=== PATIENT | male | born 1990 | race Caucasian/White ===

== ENCOUNTER 2020-05-15 16:34 | Emergency (ER) | payer MEDICAID ==
[2020-05-15] MEDS ORDERED: Sodium Chloride 0.9% 10 ML Syringe FLUSH PRN ×2 (16:42→16:49)
[2020-05-15] MEDS ORDERED: Iopamidol 612 MG/ML 100 ML Bottle IVPUSH ONE (16:49)
--- NOTE | 2020-05-15 17:22 | CT ---
CT chest Technique: Multiple axial sections through the chest were obtained. Intravenous contrast was utilized. Comparison: Prior chest CT study of 01/02/12. Findings: Visualized upper abdominal structures show no discrete abnormality. No pericardial fluid is seen. Aorta shows no aneurysm. Mediastinum and hilar regions appear within normal limits. No axillary adenopathy is seen. Lungs are clear. No acute parenchymal change is appreciated. Bone window settings were reviewed. No acute osseous finding is appreciated. Impression: 1. Nothing acute is appreciated on CT study of the chest. Diagnostic code #1 This report was dictated in MDT
--- NOTE | 2020-05-15 18:27 | EDM.PDOC ---
ED HPI GENERAL MEDICAL PROBLEM - General Chief Complaint: Trauma Stated Complaint: FELL OFF ROOF 6 DAYS AGO STERNUM PAIN Time Seen by Provider: 05/15/20 16:42 Source of Information: Reports: Patient History Limitations: Reports: No Limitations - History of Present Illness INITIAL COMMENTS - FREE TEXT/NARRATIVE: The patient presents with right sided chest pain. He was on his roof about 6 days ago and fell off and landed on his right side. He did not hit his head or hurt his neck. He had no LOC. He has right sided front chest pain. He has no shortness of breath. He has no abdominal pain, arm or leg pain. He has no fever or cough. Onset: Gradual Duration: Day(s): (6) Location: Reports: Chest Quality: Reports: Sharp Severity: Moderate Improves with: Reports: Immobilization Worsens with: Reports: Movement Context: Reports: Trauma (Fell off of roof) Associated Symptoms: Reports: Chest Pain. Denies: Cough, Fever/Chills, Headaches, Nausea/Vomiting, Shortness of Breath Chest Pain Score (Numeric/FACES): 6 - Related Data Allergies Allergy/AdvReac Type Severity Reaction Status Date / Time No Known Allergies Allergy Verified 05/15/20 16:44 Home Meds: Home Meds Ibuprofen 800 mg PO TID PRN #30 tablet 07/13/15 [Rx] Hydrocodone/Acetaminophen [Hydrocodone-Acetamin 5-325 mg] 1 - 2 each PO Q6HR PRN #20 tablet 05/15/20 [Rx] Past Medical History - Past Health History Medical/Surgical History: Denies Medical/Surgical History - Infectious Disease History Infectious Disease History: Reports: None Social & Family History - Tobacco Use Smoking Status *Q: Current Every Day Smoker Years of Tobacco use: 12 Packs/Tins Daily: 1 - Caffeine Use Caffeine Use: Reports: Coffee - Recreational Drug Use Recreational Drug Use: No Review of Systems - Review of Systems Review Of Systems: See Below Constitutional: Reports: No Symptoms Eyes: Reports: No Symptoms Ears: Reports: No Symptoms Nose: Reports: No Symptoms Mouth/Throat: Reports: No Symptoms Respiratory: Reports: No Symptoms Cardiovascular: Reports: Chest Pain GI/Abdominal: Reports: No Symptoms Genitourinary: Reports: No Symptoms Musculoskeletal: Reports: No Symptoms ED EXAM, GENERAL - Physical Exam Exam: See Below Exam Limited By: No Limitations General Appearance: Alert, No Apparent Distress Ears: Normal External Exam Nose: Normal Inspection Head: Atraumatic, Normocephalic Neck: Normal Inspection Respiratory/Chest: No Respiratory Distress, Lungs Clear, Normal Breath Sounds, Other (Pain upon palpation to the right anterior chest and right lateral chest) Cardiovascular: Regular Rate, Rhythm, No Edema, No Murmur GI/Abdominal: Soft, Non-Tender, No Organomegaly, No Mass Back Exam: Normal Inspection Extremities: Normal Inspection Neurological: Alert, Oriented, No Motor/Sensory Deficits Course - Vital Signs Last Recorded V/S: Last Vital Signs Temp 97.8 F 05/15/20 16:41 Pulse 88 05/15/20 16:41 Resp 16 05/15/20 16:41 BP 146/106 H 05/15/20 16:41 Pulse Ox 99 05/15/20 16:41 - Orders/Labs/Meds Orders: Active Orders 24 hr Category Date Time Status Peripheral IV Care [RC] . DIRECTED Care 05/15/20 16:42 Active Sodium Chloride 0.9% [Saline Flush] Med 05/15/20 16:42 Active 10 ml FLUSH ASDIRECTED PRN Sodium Chloride 0.9% [Saline Flush] Med 05/15/20 16:49 Active 10 ml FLUSH ONETIME PRN Peripheral IV Insertion Adult [OM.PC] Routine Oth 05/15/20 16:42 Ordered Medication Orders Sodium Chloride (Saline Flush) 10 ml FLUSH ASDIRECTED PRN PRN Reason: Keep Vein Open Last Admin: 05/15/20 17:04 Dose: 10 ml Documented by: GARRY Sodium Chloride (Saline Flush) 10 ml FLUSH ONETIME PRN PRN Reason: Keep Vein Open Last Admin: 05/15/20 17:00 Dose: 10 ml Documented by: IVON Meds: Medications Generic Name Dose Route Start Last Admin Trade Name Freq PRN Reason Stop Dose Admin Sodium Chloride 10 ml 05/15/20 16:42 05/15/20 17:04 Saline Flush FLUSH 10 ml ASDIRECTED PRN Administration Keep Vein Open Sodium Chloride 10 ml 05/15/20 16:49 05/15/20 17:00 Saline Flush FLUSH 10 ml ONETIME PRN Administration Keep Vein Open Discontinued Medications Generic Name Dose Route Start Last Admin Trade Name Freq PRN Reason Stop Dose Admin Iopamidol 100 ml 05/15/20 16:49 05/15/20 16:58 Isovue-300 (61%) IVPUSH 05/15/20 16:50 100 ml ONETIME ONE Administration - Re-Assessments/Exams Free Text/Narrative Re-Assessment/Exam: 05/15/20 18:24 I ordered an IV saline lock and a CT of his chest. The CT shows nothing acute. I will discharge him home with something for pain and a referral to PT. Departure - Departure Time of Disposition: 18:25 Disposition: Home, Self-Care 01 Condition: Good Clinical Impression: Fall Qualifiers: Encounter type: initial encounter Qualified Code(s): W19.XXXA - Unspecified fall, initial encounter Chest wall contusion Qualifiers: Encounter type: initial encounter Laterality: right Qualified Code(s): S20.211A - Contusion of right front wall of thorax, initial encounter - Discharge Information *PRESCRIPTION DRUG MONITORING PROGRAM REVIEWED*: No *COPY OF PRESCRIPTION DRUG MONITORING REPORT IN PATIENT PEDRO: No Prescriptions: Hydrocodone/Acetaminophen [Hydrocodone-Acetamin 5-325 mg] 1 - 2 each PO Q6HR PRN #20 tablet PRN Reason: Pain Referrals: Suzanne Martinez PA-C [Primary Care Provider] - 1 Week Forms: ED Department Discharge Additional Instructions: Take tylenol or motrin for pain. If that does not help, try the hydrocodone. Follow up with physical therapy to help with the pain. Please return if you are worse. Sepsis Event Note (ED) - Evaluation Sepsis Screening Result: No Definite Risk - Focused Exam Vital Signs: Vital Signs Temp Pulse Resp BP Pulse Ox 05/15/20 16:41 97.8 F 88 16 146/106 H 99 - My Orders Last 24 Hours: My Active Orders 05/15/20 16:42 Peripheral IV Care [RC] . DIRECTED Sodium Chloride 0.9% [Saline Flush] 10 ml FLUSH ASDIRECTED PRN Peripheral IV Insertion Adult [OM.PC] Routine 05/15/20 16:49 Sodium Chloride 0.9% [Saline Flush] 10 ml FLUSH ONETIME PRN - Assessment/Plan Last 24 Hours: My Active Orders 05/15/20 16:42 Peripheral IV Care [RC] . DIRECTED Sodium Chloride 0.9% [Saline Flush] 10 ml FLUSH ASDIRECTED PRN Peripheral IV Insertion Adult [OM.PC] Routine 05/15/20 16:49 Sodium Chloride 0.9% [Saline Flush] 10 ml FLUSH ONETIME PRN
[2020-05-15 18:46] VITALS: BP 118/72; PULSE 64
== END 2020-05-15 18:46 | disposition home or self-care (01) ==
LOC: JD.ED 16:34
DX: S20.211A Contusion of right front wall of thorax, initial encounter (principal); F17.210 Nicotine dependence, cigarettes, uncomplicated; W17.89XA Other fall from one level to another, initial encounter
CPT/HCPCS: 71260; 99285; Q9967; 99283

== ENCOUNTER 2020-06-30 12:11 | Emergency (ER) | payer MEDICAID ==
[2020-06-30] MEDS ORDERED: Sodium Chloride 0.9% 10 ML Syringe FLUSH PRN (12:22)
--- NOTE | 2020-06-30 12:41 | EDM.PDOCBH ---
ED HPI GENERAL MEDICAL PROBLEM - General Chief Complaint: Drug or Alcohol Abuse Stated Complaint: [facility] Time Seen by Provider: 06/30/20 12:18 Source of Information: Reports: Patient, EMS, Police History Limitations: Reports: No Limitations - History of Present Illness INITIAL COMMENTS - FREE TEXT/NARRATIVE: The patient presents by [facility] for an overdose. The patient was smoking a trisha he bought on the street and he stopped breathing. There was someone near him when he did this and they called 911 and started CPR. The nut roaster's deputies arrived shortly after and gave him 2 doses of narcan 4mg per nasal. When EMS arrived they started an IV and gave more narcan. They did 2 rounds of CPR. He came around and is alert and talking now. The patient said he smoked the roxys before and never had a problem. He only used half a pill. He had some nausea and vomiting and he was given zofran enroute. He has some chest pain now. He has no medical problems. Onset: Sudden Duration: Minutes: Location: Reports: Chest Quality: Reports: Sharp Severity: Moderate Improves with: Reports: Immobilization Worsens with: Reports: Movement Context: Reports: Trauma (CPR) Associated Symptoms: Reports: Chest Pain, Nausea/Vomiting. 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, Oxygen Middle Chest Pain Score (Numeric/FACES): 1 - Related Data Allergies Allergy/AdvReac Type Severity Reaction Status Date / Time No Known Allergies Allergy Verified 06/30/20 12:24 Home Meds: Home Meds Ibuprofen 800 mg PO TID PRN #30 tablet 07/13/15 [Rx] Ondansetron [Zofran ODT] 4 mg PO Q6H PRN #20 tab.dis 06/30/20 [Rx] Past Medical History - Past Health History Medical/Surgical History: Denies Medical/Surgical History - Infectious Disease History Infectious Disease History: Reports: None Social & Family History - Caffeine Use Caffeine Use: Reports: Coffee ED ROS GENERAL - Review of Systems Review Of Systems: See Below Constitutional: Reports: No Symptoms HEENT: Reports: No Symptoms Respiratory: Reports: No Symptoms Cardiovascular: Reports: Chest Pain Endocrine: Reports: No Symptoms GI/Abdominal: Reports: Nausea, Vomiting. Denies: Abdominal Pain : Reports: No Symptoms Musculoskeletal: Reports: No Symptoms Skin: Reports: No Symptoms ED EXAM, BEHAVIORAL HEALTH - Physical Exam Exam: See Below Exam Limited By: No Limitations General Appearance: Alert, No Apparent Distress Ears: Normal External Exam Nose: Normal Inspection Head: Atraumatic, Normocephalic Neck: Normal Inspection Respiratory/Chest: No Respiratory Distress, Lungs Clear, Normal Breath Sounds Cardiovascular: Regular Rate, Rhythm, No Edema, No Murmur GI/Abdominal: Soft, Non-Tender, No Organomegaly, No Mass Extremities: Normal Inspection COURSE, BEHAVIORAL HEALTH COMP - Course Vital Signs: Last Vital Signs Temp 97.2 F 06/30/20 12:35 Pulse 103 H 06/30/20 12:35 Resp 24 H 06/30/20 12:35 BP 117/88 06/30/20 12:35 Pulse Ox 87 L 06/30/20 12:35 Orders, Labs, Meds: Active Orders 24 hr Category Date Time Status Cardiac Monitoring [RC] . DIRECTED Care 06/30/20 12:22 Active Peripheral IV Care [RC] . DIRECTED Care 06/30/20 12:23 Active Sodium Chloride 0.9% [Saline Flush] Med 06/30/20 12:22 Active 10 ml FLUSH ASDIRECTED PRN Peripheral IV Insertion Adult [OM.PC] Stat Oth 06/30/20 12:22 Ordered Medication Orders Sodium Chloride (Saline Flush) 10 ml FLUSH ASDIRECTED PRN PRN Reason: Keep Vein Open Last Admin: 06/30/20 12:32 Dose: 10 ml Documented by: YVAN Laboratory Tests 06/30/20 06/30/20 06/30/20 Range/Units 12:42 13:08 13:08 WBC 12.32 H (4.23-9.07) K/mm3 RBC 4.75 (4.63-6.08) M/mm3 Hgb 14.1 (13.7-17.5) gm/dl Hct 43.6 (40.1-51.0) % MCV 91.8 (79.0-92.2) fl MCH 29.7 (25.7-32.2) pg MCHC 32.3 (32.2-35.5) g/dl RDW Std Deviation 47.1 H (35.1-43.9) fL Plt Count 399 H (163-337) K/mm3 MPV 9.6 (9.4-12.3) fl Neut % (Auto) 84.5 H (34.0-67.9) % Lymph % (Auto) 9.7 L (21.8-53.1) % [place] % (Auto) 4.1 L (5.3-12.2) % Eos % (Auto) 1.3 (0.8-7.0) Baso % (Auto) 0.2 (0.1-1.2) % Neut # (Auto) 10.41 H (1.78-5.38) K/mm3 Lymph # (Auto) 1.20 L (1.32-3.57) K/mm3 [place] # (Auto) 0.50 (0.30-0.82) K/mm3 Eos # (Auto) 0.16 (0.04-0.54) K/mm3 Baso # (Auto) 0.02 (0.01-0.08) K/mm3 Manual Slide Review Abnormal smear Sodium 140 (136-145) mEq/L Potassium 3.7 (3.5-5.1) mEq/L Chloride 102 (98-107) mEq/L Carbon Dioxide 27 (21-32) mEq/L Anion Gap 14.7 (5-15) BUN 18 (7-18) mg/dL Creatinine 1.5 H (0.7-1.3) mg/dL Est Cr Clr Drug Dosing 77.60 mL/min Estimated GFR (MDRD) 54 (>60) mL/min BUN/Creatinine Ratio 12.0 L (14-18) Glucose 76 (74-106) mg/dL Calcium 9.6 (8.5-10.1) mg/dL Total Bilirubin 0.3 (0.2-1.0) mg/dL AST 36 (15-37) U/L ALT 46 (16-63) U/L Alkaline Phosphatase 78 (46-116) U/L Total Protein 7.6 (6.4-8.2) g/dl Albumin 3.9 (3.4-5.0) g/dl Globulin 3.7 gm/dL Albumin/Globulin Ratio 1.1 (1-2) Urine Opiates Screen Presumptive positive H (IOHQKH=321) Ur Buprenorphine Scrn Negative (CUTOFF=10) Ur Oxycodone Screen Negative (ARH6OR=319) Urine Methadone Screen Negative (IDE9IB=466) Ur Propoxyphene Screen Negative (PYKSIX=117) Ur Barbiturates Screen Negative (TQTMEW=150) Ur Tricyclics Screen Negative (UKUJAQ=909) Ur Phencyclidine Scrn Negative (CUTOFF=25) Ur Amphetamine Screen Presumptive positive H (LEYXRK=156) U Methamphetamines Scrn Presumptive positive H (JEELPZ=851) U Benzodiazepines Scrn Negative (ZNNXOV=878) U Cocaine Metab Screen Negative (NRGJRF=445) U Marijuana (THC) Screen Presumptive positive H (CUTOFF=50) Ethyl Alcohol 0.00 (0.00) gm% Medications Generic Name Dose Route Start Last Admin Trade Name Freq PRN Reason Stop Dose Admin Sodium Chloride 10 ml 06/30/20 12:22 06/30/20 12:32 Saline Flush FLUSH 10 ml ASDIRECTED PRN Administration Keep Vein Open Discontinued Medications Generic Name Dose Route Start Last Admin Trade Name Freq PRN Reason Stop Dose Admin Metoclopramide HCl 10 mg 06/30/20 15:01 06/30/20 15:05 Reglan IVPUSH 06/30/20 15:02 10 mg ONETIME ONE Administration Re-Assessment/Re-Exam: I ordered an IV saline lock, labs and ETOH. His WBC was elevated at 12.32. His creatinine was elevated at 1.5. His UDS was positive for opiates, amphetamines, methamphetamines and marijuana. His ETOH was 0. I will observe him a little longer and discharge him home. He has vomited again. I ordered reglan 10mg IV. He has been here 4 hours and has not stopped his breathing. I will discharge him home with some zofran. Departure - Departure Time of Disposition: 16:10 Disposition: Home, Self-Care 01 Condition: Good Clinical Impression: Drug abuse Opioid overdose Qualifiers: Encounter type: initial encounter Injury intent: accidental or unintentional Qualified Code(s): T40.2X1A - Poisoning by other opioids, accidental (unintentional), initial encounter - Discharge Information *PRESCRIPTION DRUG MONITORING PROGRAM REVIEWED*: Not Applicable *COPY OF PRESCRIPTION DRUG MONITORING REPORT IN PATIENT PEDRO: Not Applicable Prescriptions: Ondansetron [Zofran ODT] 4 mg PO Q6H PRN #20 tab.dis PRN Reason: Nausea\vomiting Referrals: Suzanne Martinez PA-C [Primary Care Provider] - 1 Week Forms: ED Department Discharge Additional Instructions: Go home and rest. Drink plenty of fluids. Stop taking opiates you cannot trust what is in them and you may stop breathing and . If you need help stopping, contact [facility] at . Please return if you are worse. Take the zofran every 6 hours as needed for nausea or vomiting. Sepsis Event Note (ED) - Focused Exam Vital Signs: Vital Signs Temp Pulse Resp BP Pulse Ox 06/30/20 12:35 97.2 F 103 H 24 H 117/88 87 L - My Orders Last 24 Hours: My Active Orders 06/30/20 12:22 Cardiac Monitoring [RC] . DIRECTED Sodium Chloride 0.9% [Saline Flush] 10 ml FLUSH ASDIRECTED PRN Peripheral IV Insertion Adult [OM.PC] Stat 06/30/20 12:23 Peripheral IV Care [RC] . DIRECTED - Assessment/Plan Last 24 Hours: My Active Orders 06/30/20 12:22 Cardiac Monitoring [RC] . DIRECTED Sodium Chloride 0.9% [Saline Flush] 10 ml FLUSH ASDIRECTED PRN Peripheral IV Insertion Adult [OM.PC] Stat 06/30/20 12:23 Peripheral IV Care [RC] . DIRECTED
[2020-06-30] MEDS ORDERED: Metoclopramide 10 MG/2 ML SDV IVPUSH ONE (15:01)
[2020-06-30 16:30] VITALS: BP 117/84; PULSE 95
== END 2020-06-30 16:25 | disposition home or self-care (01) ==
LOC: JD.ED 12:11
DX: T40.2X1A Poisoning by other opioids, accidental (unintentional), initial encounter (principal); F15.10 Other stimulant abuse, uncomplicated; F12.10 Cannabis abuse, uncomplicated
CPT/HCPCS: 36415; 80053; 80306; 80307; 85025; 96374; 99284; J2765

== ENCOUNTER 2020-12-21 19:51 | Emergency (ER) | payer MEDICAID ==
[2020-12-21] MEDS ORDERED: HYDROmorphone 0.5 MG/0.5 ML Syringe IVPUSH ONE (20:20)
[2020-12-21] MEDS ORDERED: Sodium Chloride 0.9% 1,000 ML IV STA (20:20)
[2020-12-21] MEDS ORDERED: Ondansetron 4 MG/2 ML SDV IVPUSH ONE ×2 (20:20→21:17)
--- NOTE | 2020-12-21 21:47 | EDM.PDOC ---
ED HPI GENERAL MEDICAL PROBLEM - General Chief Complaint: Abdominal Pain Stated Complaint: LOWER ABDOMINAL PAIN Time Seen by Provider: 12/21/20 20:10 Source of Information: Reports: Patient, Family, RN Notes Reviewed History Limitations: Reports: No Limitations - History of Present Illness INITIAL COMMENTS - FREE TEXT/NARRATIVE: Patient is a 30-year-old male presenting to the emergency department with complaints of lower abdominal pain and lower back pain as well as nausea. He states symptoms began around 1500 today with an episode of vomiting. Immediately after vomiting, he developed the lower abdominal pain and low back pain. He has had 2 episodes of diarrhea and states there was blood present in the second episode. He has also had rigors and diaphoresis. Denies any history of abdominal surgeries. Denies any recreational drug use other than marijuana. Lower Abdomen Pain Score (Numeric/FACES): 10 - Related Data Allergies Allergy/AdvReac Type Severity Reaction Status Date / Time No Known Allergies Allergy Verified 12/21/20 20:09 Home Meds: Home Meds Ibuprofen 800 mg PO TID PRN #30 tablet 07/13/15 [Rx] Ondansetron [Zofran ODT] 4 mg PO Q6H PRN #20 tab.dis 06/30/20 [Rx] Acetaminophen/HYDROcodone [[place] 325-5 MG] 1 tab PO Q4H PRN #10 tablet 12/21/20 [Rx] Ondansetron [Zofran ODT] 4 mg PO Q6H PRN #10 tab.dis 12/21/20 [Rx] levoFLOXacin [Levaquin] 750 mg PO DAILY 7 Days #7 tab 12/21/20 [Rx] metroNIDAZOLE [Flagyl] 500 mg PO Q8H 7 Days #21 tab 12/21/20 [Rx] Past Medical History - Past Health History Medical/Surgical History: Denies Medical/Surgical History HEENT History: Reports: None Cardiovascular History: Reports: None Respiratory History: Reports: None Gastrointestinal History: Reports: None Genitourinary History: Reports: None Musculoskeletal History: Reports: None Neurological History: Reports: None Psychiatric History: Reports: None Endocrine/Metabolic History: Reports: None Hematologic History: Reports: None Immunologic History: Reports: None Oncologic (Cancer) History: Reports: None Dermatologic History: Reports: None - Infectious Disease History Infectious Disease History: Reports: None - Past Surgical History Head Surgeries/Procedures: Reports: None HEENT Surgical History: Reports: Oral Surgery GI Surgical History: Reports: None Social & Family History - Family History Family Medical History: No Pertinent Family History HEENT: Reports: None GI: Reports: None : Reports: None OBGYN: Reports: None Musculoskeletal: Reports: None Hematologic: Reports: None Oncologic: Reports: Breast - Tobacco Use Tobacco Use Status *Q: Current Every Day Tobacco User Years of Tobacco use: 20 Packs/Tins Daily: 0.5 - Caffeine Use Caffeine Use: Reports: Coffee - Recreational Drug Use Recreational Drug Use: Yes Drug Use in Last 12 Months: Yes Recreational Drug Type: Reports: Marijuana/Hashish Recreational Drug Use Frequency: Socially ED ROS GENERAL - Review of Systems Review Of Systems: See Below Constitutional: Reports: Diaphoresis HEENT: Reports: No Symptoms Respiratory: Reports: No Symptoms Cardiovascular: Reports: No Symptoms Endocrine: Reports: No Symptoms GI/Abdominal: Reports: Abdominal Pain (Mid lower), Bloody Stool, Diarrhea, Nausea, Vomiting : Reports: No Symptoms Musculoskeletal: Reports: No Symptoms Skin: Reports: No Symptoms Neurological: Reports: No Symptoms Psychiatric: Reports: No Symptoms Hematologic/Lymphatic: Reports: No Symptoms Immunologic: Reports: No Symptoms ED EXAM, GI/ABD - Physical Exam Exam: See Below Exam Limited By: No Limitations General Appearance: Alert, Mild Distress Respiratory/Chest: No Respiratory Distress, Lungs Clear, Normal Breath Sounds, No Accessory Muscle Use, Chest Non-Tender Cardiovascular: Normal Peripheral Pulses, Regular Rate, Rhythm, No Edema, No Gallop, No JVD, No Murmur, No Rub GI/Abdominal Exam: Normal Bowel Sounds, Soft, No Organomegaly, No Distention, No Abnormal Bruit, No Mass, Pelvis Stable, Tender (Tenderness to palpation to the mid lower abdomen and lesser so to the left lower quadrant.) Neurological: Alert, Oriented, CN II-XII Intact, Normal Cognition, Normal Gait, Normal Reflexes, No Motor/Sensory Deficits Psychiatric: Normal Affect, Normal Mood Skin Exam: Warm, Dry, Intact, Normal Color, No Rash Course - Vital Signs Last Recorded V/S: Last Vital Signs Temp 96.9 F 12/21/20 20:06 Pulse 65 12/21/20 20:06 Resp 16 12/21/20 20:06 BP 137/84 12/21/20 20:06 Pulse Ox 100 12/21/20 20:06 - Orders/Labs/Meds Orders: Active Orders 24 hr Category Date Time Status Abdomen Pelvis w Cont [CT] Stat Exams 12/21/20 20:20 Taken Levofloxacin/Dextrose 5%-Water [Levaquin in D5W 750 MG/ Med 12/21/20 23:18 Active 150 ML] 750 mg Premix Bag 1 bag IV ONETIME Sodium Chloride 0.9% [Saline Flush] Med 12/21/20 22:45 Active 10 ml FLUSH BOLUS metroNIDAZOLE/Normal Saline [Flagyl in NS 500 MG/100 ML Med 12/21/20 23:18 Active ] 500 mg Premix Bag 1 bag IV ONETIME Medication Orders Levofloxacin/Dextrose 750 mg/ (Premix) 150 mls @ 100 mls/hr IV ONETIME ONE Stop: 12/22/20 00:47 Metronidazole 500 mg/ Premix 100 mls @ 100 mls/hr IV ONETIME ONE Stop: 12/22/20 00:17 Sodium Chloride (Sodium Chloride 0.9% 10 Ml Syringe) 10 ml FLUSH BOLUS LESLY Last Admin: 12/21/20 22:42 Dose: 10 ml Documented by: [email or web address] Labs: Laboratory Tests 12/21/20 12/21/20 12/21/20 Range/Units 20:15 20:15 21:03 WBC 12.55 H (4.23-9.07) K/mm3 RBC 4.67 (4.63-6.08) M/mm3 Hgb 13.8 (13.7-17.5) gm/dl Hct 42.3 (40.1-51.0) % MCV 90.6 (79.0-92.2) fl MCH 29.6 (25.7-32.2) pg MCHC 32.6 (32.2-35.5) g/dl RDW Std Deviation 46.8 H (35.1-43.9) fL Plt Count 390 H (163-337) K/mm3 MPV 9.4 (9.4-12.3) fl Neut % (Auto) 75.0 H (34.0-67.9) % Lymph % (Auto) 18.0 L (21.8-53.1) % [place] % (Auto) 5.3 (5.3-12.2) % Eos % (Auto) 1.3 (0.8-7.0) Baso % (Auto) 0.2 (0.1-1.2) % Neut # (Auto) 9.42 H (1.78-5.38) K/mm3 Lymph # (Auto) 2.26 (1.32-3.57) K/mm3 [place] # (Auto) 0.67 (0.30-0.82) K/mm3 Eos # (Auto) 0.16 (0.04-0.54) K/mm3 Baso # (Auto) 0.02 (0.01-0.08) K/mm3 Sodium 140 (136-145) mEq/L Potassium 4.0 (3.5-5.1) mEq/L Chloride 103 (98-107) mEq/L Carbon Dioxide 26 (21-32) mEq/L Anion Gap 15.0 (5-15) BUN 19 H (7-18) mg/dL Creatinine 1.3 (0.7-1.3) mg/dL Est Cr Clr Drug Dosing 89.54 mL/min Estimated GFR (MDRD) > 60 (>60) mL/min BUN/Creatinine Ratio 14.6 (14-18) Glucose 116 H (74-106) mg/dL Calcium 9.4 (8.5-10.1) mg/dL Magnesium 1.7 L (1.8-2.4) mg/dl Total Bilirubin 0.4 (0.2-1.0) mg/dL AST 17 (15-37) U/L ALT 30 (16-63) U/L Alkaline Phosphatase 80 (46-116) U/L C-Reactive Protein 0.9 (<1.0) mg/dL Total Protein 7.6 (6.4-8.2) g/dl Albumin 3.8 (3.4-5.0) g/dl Globulin 3.8 gm/dL Albumin/Globulin Ratio 1.0 (1-2) Urine Color Yellow (Yellow) Urine Appearance Clear (Clear) Urine pH 8.5 H (5.0-8.0) Ur Specific [place] 1.020 (1.005-1.030) Urine Protein Negative (Negative) Urine Glucose (UA) Negative (Negative) Urine Ketones 1+ H (Negative) Urine Occult Blood Negative (Negative) Urine Nitrite Negative (Negative) Urine Bilirubin Negative (Negative) Urine Urobilinogen 0.2 (0.2-1.0) Ur Leukocyte Esterase Negative (Negative) Urine Opiates Screen (SDRPSM=169) Ur Buprenorphine Scrn (CUTOFF=10) Ur Oxycodone Screen (FJI9AK=369) Urine Methadone Screen (EHQ6JX=344) Ur Propoxyphene Screen (QQALLW=179) Ur Barbiturates Screen (ZUIMTK=219) Ur Tricyclics Screen (DQMUZY=463) Ur Phencyclidine Scrn (CUTOFF=25) Ur Amphetamine Screen (EHQYMM=465) U Methamphetamines Scrn (YKKJGB=429) U Benzodiazepines Scrn (WPZVYL=970) U Cocaine Metab Screen (JJNOYR=115) U Marijuana (THC) Screen (CUTOFF=50) 12/21/20 Range/Units 21:03 WBC (4.23-9.07) K/mm3 RBC (4.63-6.08) M/mm3 Hgb (13.7-17.5) gm/dl Hct (40.1-51.0) % MCV (79.0-92.2) fl MCH (25.7-32.2) pg MCHC (32.2-35.5) g/dl RDW Std Deviation (35.1-43.9) fL Plt Count (163-337) K/mm3 MPV (9.4-12.3) fl Neut % (Auto) (34.0-67.9) % Lymph % (Auto) (21.8-53.1) % [place] % (Auto) (5.3-12.2) % Eos % (Auto) (0.8-7.0) Baso % (Auto) (0.1-1.2) % Neut # (Auto) (1.78-5.38) K/mm3 Lymph # (Auto) (1.32-3.57) K/mm3 [place] # (Auto) (0.30-0.82) K/mm3 Eos # (Auto) (0.04-0.54) K/mm3 Baso # (Auto) (0.01-0.08) K/mm3 Sodium (136-145) mEq/L Potassium (3.5-5.1) mEq/L Chloride (98-107) mEq/L Carbon Dioxide (21-32) mEq/L Anion Gap (5-15) BUN (7-18) mg/dL Creatinine (0.7-1.3) mg/dL Est Cr Clr Drug Dosing mL/min Estimated GFR (MDRD) (>60) mL/min BUN/Creatinine Ratio (14-18) Glucose (74-106) mg/dL Calcium (8.5-10.1) mg/dL Magnesium (1.8-2.4) mg/dl Total Bilirubin (0.2-1.0) mg/dL AST (15-37) U/L ALT (16-63) U/L Alkaline Phosphatase (46-116) U/L C-Reactive Protein (<1.0) mg/dL Total Protein (6.4-8.2) g/dl Albumin (3.4-5.0) g/dl Globulin gm/dL Albumin/Globulin Ratio (1-2) Urine Color (Yellow) Urine Appearance (Clear) Urine pH (5.0-8.0) Ur Specific [place] (1.005-1.030) Urine Protein (Negative) Urine Glucose (UA) (Negative) Urine Ketones (Negative) Urine Occult Blood (Negative) Urine Nitrite (Negative) Urine Bilirubin (Negative) Urine Urobilinogen (0.2-1.0) Ur Leukocyte Esterase (Negative) Urine Opiates Screen Presumptive positive H (JRBTEX=171) Ur Buprenorphine Scrn Negative (CUTOFF=10) Ur Oxycodone Screen Negative (RDT3XR=736) Urine Methadone Screen Negative (YGJ8YG=561) Ur Propoxyphene Screen Negative (SZDGGO=635) Ur Barbiturates Screen Negative (UUWBTB=748) Ur Tricyclics Screen Negative (TSZFED=822) Ur Phencyclidine Scrn Negative (CUTOFF=25) Ur Amphetamine Screen Negative (BSXHNL=614) U Methamphetamines Scrn Negative (RYKNFE=971) U Benzodiazepines Scrn Negative (VSMYAG=220) U Cocaine Metab Screen Negative (OIUQSU=149) U Marijuana (THC) Screen Presumptive positive H (CUTOFF=50) Meds: Medications Generic Name Dose Route Start Last Admin Trade Name Freq PRN Reason Stop Dose Admin Levofloxacin/Dextrose 750 mg/ 150 mls @ 100 mls/hr 12/21/20 23:18 Premix IV 12/22/20 00:47 ONETIME ONE Metronidazole 500 mg/ Premix 100 mls @ 100 mls/hr 12/21/20 23:18 IV 12/22/20 00:17 ONETIME ONE Sodium Chloride 10 ml 12/21/20 22:45 12/21/20 22:42 Sodium Chloride 0.9% 10 Ml Syringe FLUSH 10 ml BOLUS LESLY Administration Discontinued Medications Generic Name Dose Route Start Last Admin Trade Name Mackenzie PRN Reason Stop Dose Admin Hydromorphone HCl 0.5 mg 12/21/20 20:20 12/21/20 20:28 Hydromorphone 0.5 Mg/0.5 Ml Syringe IVPUSH 12/21/20 20:21 0.5 mg ONETIME ONE Administration Sodium Chloride 1,000 mls @ 999 mls/hr 12/21/20 20:20 12/21/20 20:27 Normal Saline IV 12/21/20 21:20 999 mls/hr NOW STA Administration Iopamidol 100 ml 12/21/20 22:42 12/21/20 22:42 Iopamidol 612 Mg/Ml 100 Ml Bottle IVPUSH 12/21/20 22:43 100 ml ONETIME ONE Administration Ketorolac Tromethamine 30 mg 12/21/20 23:18 Ketorolac 30 Mg/Ml Sdv IVPUSH 12/21/20 23:19 ONETIME ONE Metoclopramide HCl 7.5 mg 12/21/20 23:19 Metoclopramide 10 Mg/2 Ml Sdv IVPUSH 12/21/20 23:20 ONETIME ONE Ondansetron HCl 4 mg 12/21/20 20:20 12/21/20 20:28 Ondansetron 4 Mg/2 Ml Sdv IVPUSH 12/21/20 20:21 4 mg ONETIME ONE Administration Ondansetron HCl 4 mg 12/21/20 21:17 12/21/20 21:34 Ondansetron 4 Mg/2 Ml Sdv IVPUSH 12/21/20 21:18 4 mg ONETIME ONE Administration - Re-Assessments/Exams Free Text/Narrative Re-Assessment/Exam: Patient is a 30-year-old male presenting to the emergency department with complaints of acute onset of nausea, vomiting, diarrhea, and lower abdominal pain. Symptoms began around 1500 this afternoon. He has also been having diaphoresis and rigors. Vital signs in triage were stable. On exam, he does have tenderness to the mid lower abdomen and to a lesser degree the left lower quadrant. Complains of pain in his low back near his tailbone as well. He reports having 2 episodes of diarrhea with some blood in the second episode. I have ordered blood work, urinalysis, urine drug screen, CT scan of the abdomen pelvis with contrast and a Hemoccult stool. If he is unable to produce a stool sample, I will complete a rectal exam. I will give a 1 L bolus of normal saline, Zofran for nausea, and Dilaudid for pain. 12/21/20 22:43 Due to significant her WBC 12.55, platelet 390, BUN 19 magnesium 1.7. Urinalysis with 1+ ketones but no signs of infection or blood. Urine drug screen was presumptive positive for opiates and marijuana. We did give the patient Dilaudid prior to this to being collected, therefore this is likely the cause of the positive opiate. Patient has had no further vomiting or diarrhea since he has been in the ER. We are awaiting the results of the CT scan. 12/21/20 23:19 CT scan of the abdomen pelvis shows "mild colonic wall thickening with mild surrounding pericolonic inflammatory change. The abnormality involves primarily the colon from just proximal to the splenic flexure to the sigmoid. There are scattered diverticula present, the segment of the left colon abnormalities too long to be explained on the basis of diverticulitis. Nonspecific/nonobstructive intestinal gas pattern. ". Results discussed with the general surgeon on-call, Dr. Brandon. He feels that this is a diverticulitis and recommended that we treat this as such. He should follow-up with his primary care later this week or return to ER with worsening symptoms. I have ordered first dose of Levaquin and Flagyl to be given IV. His pain is improved and tolerable, nonetheless I ordered Toradol 30 mg IV to be given to help reduce inflammation. He has had no further vomiting but does still feel mildly nauseous. I ordered Reglan 7.5 mg IV. Plan will be to send prescription for Levaquin, Flagyl, and Zofran for nausea. Discussed that if his symptoms should appear to be worsening or he is unable to keep down his medications, he should return to the emergency department for reevaluation. He verbalizes understanding of this. Discharge instructions as documented. Departure - Departure Time of Disposition: 23:21 Disposition: Home, Self-Care 01 Condition: Good Clinical Impression: Diverticulitis - Discharge Information *PRESCRIPTION DRUG MONITORING PROGRAM REVIEWED*: No *COPY OF PRESCRIPTION DRUG MONITORING REPORT IN PATIENT PEDRO: No Prescriptions: metroNIDAZOLE [Flagyl] 500 mg PO Q8H 7 Days #21 tab levoFLOXacin [Levaquin] 750 mg PO DAILY 7 Days #7 tab Acetaminophen/HYDROcodone [[place] 325-5 MG] 1 tab PO Q4H PRN #10 tablet PRN Reason: Pain Ondansetron [Zofran ODT] 4 mg PO Q6H PRN #10 tab.dis PRN Reason: Nausea/Vomiting Instructions: Diverticulitis Referrals: Suzanne Martinez PA-C [Primary Care Provider] - Forms: ED Department Discharge Additional Instructions: You were seen in the emergency department today for evaluation with regards to lower abdominal pain, nausea, vomiting, diarrhea and the presence of some blood in your diarrhea. Work-up included blood work, urinalysis, and a CT scan your abdomen pelvis. Results of your CT scan did show some inflammation in the colon consistent with a diagnosis of diverticulitis. While in the ER, you received a first dose of antibiotics through your IV. A prescription for antibiotics, nausea medication, and pain medication has been sent to [facility]. Take these medications as prescribed. Recommend follow-up with your primary care provider later this week for a recheck. If you should experience symptoms of worsening abdominal pain, vomiting and inability keep your medications down, or any other symptoms of concern, please return to the emergency department for reevaluation. Sepsis Event Note (ED) - Evaluation Sepsis Screening Result: No Definite Risk - Focused Exam Vital Signs: Vital Signs Temp Pulse Resp BP Pulse Ox 12/21/20 20:06 96.9 F 65 16 137/84 100 - My Orders Last 24 Hours: My Active Orders 12/21/20 20:20 Abdomen Pelvis w Cont [CT] Stat 12/21/20 22:45 Sodium Chloride 0.9% [Saline Flush] 10 ml FLUSH BOLUS 12/21/20 23:18 Levofloxacin/Dextrose 5%-Water [Levaquin in D5W 750 MG/150 ML] 750 mg Premix Bag 1 bag IV ONETIME metroNIDAZOLE/Normal Saline [Flagyl in NS 500 MG/100 ML] 500 mg Premix Bag 1 bag IV ONETIME - Assessment/Plan Last 24 Hours: My Active Orders 12/21/20 20:20 Abdomen Pelvis w Cont [CT] Stat 12/21/20 22:45 Sodium Chloride 0.9% [Saline Flush] 10 ml FLUSH BOLUS 12/21/20 23:18 Levofloxacin/Dextrose 5%-Water [Levaquin in D5W 750 MG/150 ML] 750 mg Premix Bag 1 bag IV ONETIME metroNIDAZOLE/Normal Saline [Flagyl in NS 500 MG/100 ML] 500 mg Premix Bag 1 bag IV ONETIME
[2020-12-21] MEDS ORDERED: Iopamidol 612 MG/ML 100 ML Bottle IVPUSH ONE (22:42)
[2020-12-21] MEDS ORDERED: Sodium Chloride 0.9% 10 ML Syringe FLUSH SCH (22:45)
[2020-12-21] MEDS ORDERED: Ketorolac 30 MG/ML SDV IVPUSH ONE (23:18)
[2020-12-21] MEDS ORDERED: metroNIDAZOLE/Normal Saline 500 MG in Premix Bag 1 BAG IV ONE (23:18)
[2020-12-21] MEDS ORDERED: Levofloxacin/Dextrose 5%-Water 750 MG in Premix Bag 1 BAG IV ONE (23:18)
[2020-12-21] MEDS ORDERED: Metoclopramide 10 MG/2 ML SDV IVPUSH ONE (23:19)
[2020-12-22 01:15] VITALS: BP 121/76; PULSE 89
--- NOTE | 2020-12-22 07:39 | CT ---
CT abdomen and pelvis Technique: Multiple axial sections were obtained from above the dome of the diaphragm inferiorly through the pubic symphysis. Intravenous and oral contrast was utilized. Delayed images were also obtained through the abdomen and pelvis. Reconstructed coronal and sagittal images were obtained. Comparison: Prior CT abdomen and pelvis exam of 01/02/12. Findings: Bowel wall thickening appears to be present within the descending colon. Difficult to exclude an area of colitis. Visualized lung bases show nothing acute. Liver shows small low density area next to the intrahepatic fissure compatible with minimal amount of fat. Liver shows nothing acute. Spleen appears normal. Adrenal glands show no nodule. No abnormality is appreciated within the pancreas. Kidneys show symmetric contrast enhancement without hydronephrosis or mass. Aorta shows no aneurysm. Gallbladder contains no calcified gallstones. Abdominal aorta shows no aneurysm. No retroperitoneal adenopathy is seen. Appendix is seen which is normal. No pelvic mass or adenopathy is appreciated. Delayed images show contrast excretion from both kidneys into nondilated ureters and contrast is seen within the bladder. Bone window settings were reviewed which show no acute osseous abnormality. Impression: 1. Left colon shows findings raising the possibility of colitis. 2. No other acute abnormality is appreciated on CT study of the abdomen and pelvis. Diagnostic code #3 I agree with preliminary report from [facility], finalized on 12/21/20, 11:55 PM CDT, code #1
== END 2020-12-22 01:05 | disposition home or self-care (01) ==
LOC: JD.ED 19:51
DX: K57.32 Diverticulitis of large intestine without perforation or abscess without bleeding (principal); Z72.0 Tobacco use
CPT/HCPCS: 36415; 74177; 80053; 80306; 81003; 83735; 85025; 86140; 96365; 96368; 96375; 96376; 99284; J1170; J1885; J1956; J2405; J2765; J3490; J7030; Q9967

== ENCOUNTER 2020-12-27 10:39 | Emergency (ER) | payer MEDICAID ==
[2020-12-27] MEDS ORDERED: HYDROmorphone 0.5 MG/0.5 ML Syringe IVPUSH ONE (11:14)
[2020-12-27] MEDS ORDERED: Sodium Chloride 0.9% 1,000 ML IV ONE (11:14)
[2020-12-27] MEDS ORDERED: Ondansetron 4 MG/2 ML SDV IVPUSH ONE (11:14)
--- NOTE | 2020-12-27 11:31 | EDM.PDOC ---
ED HPI GENERAL MEDICAL PROBLEM - General Chief Complaint: Abdominal Pain Stated Complaint: ABDOMINAL PAIN Time Seen by Provider: 12/27/20 11:03 Source of Information: Reports: Patient History Limitations: Reports: No Limitations - History of Present Illness INITIAL COMMENTS - FREE TEXT/NARRATIVE: 30-year-old male presents to the emergency department today with complaints of lower abdominal pain. He was recently seen in the emergency department on 12/21/2020 and diagnosed with diverticulitis. While in the emergency department he was given IV Levaquin and Flagyl and then sent home with a prescription to complete p.o. antibiotic regimen. He states that he was doing well and felt like he was getting better however yesterday he developed lower abdominal discomfort which felt like he was being stabbed through his back into his spine. He states that when his symptoms started he developed some nausea and has remained nauseated since yesterday morning however has not vomited. He states he has eaten very little and has had not much of an appetite. He also states he has had 2 diarrhea stools. The first diarrhea stool he did notice some blood in the stool. He states he has had the chills but is unaware of having any fever. And he states that when he voids he feels like he is having difficulty emptying his bladder. Lower Abdomen Pain Score (Numeric/FACES): 7 - Related Data Allergies Allergy/AdvReac Type Severity Reaction Status Date / Time No Known Allergies Allergy Verified 12/27/20 10:50 Home Meds: Home Meds Ibuprofen 800 mg PO TID PRN #30 tablet 07/13/15 [Rx] Acetaminophen/HYDROcodone [[place] 325-5 MG] 1 tab PO Q4H PRN #10 tablet 12/21/20 [Rx] Ondansetron [Zofran ODT] 4 mg PO Q6H PRN #10 tab.dis 12/21/20 [Rx] levoFLOXacin [Levaquin] 750 mg PO DAILY 7 Days #7 tab 12/21/20 [Rx] metroNIDAZOLE [Flagyl] 500 mg PO Q8H 7 Days #21 tab 12/21/20 [Rx] L.acidoph,Paracasei, B.lactis [Probiotic] 1 cap PO DAILY 12/27/20 [History] Ondansetron [Zofran ODT] 4 mg PO Q6H PRN #12 tab.dis 12/27/20 [Rx] Past Medical History - Past Health History Medical/Surgical History: Denies Medical/Surgical History HEENT History: Reports: None Cardiovascular History: Reports: None Respiratory History: Reports: None Gastrointestinal History: Reports: Diverticulosis Genitourinary History: Reports: None Musculoskeletal History: Reports: None Neurological History: Reports: None Psychiatric History: Reports: None Endocrine/Metabolic History: Reports: None Hematologic History: Reports: None Immunologic History: Reports: None Oncologic (Cancer) History: Reports: None Dermatologic History: Reports: None - Infectious Disease History Infectious Disease History: Reports: None - Past Surgical History Head Surgeries/Procedures: Reports: None HEENT Surgical History: Reports: Oral Surgery GI Surgical History: Reports: None Social & Family History - Family History Family Medical History: No Pertinent Family History HEENT: Reports: None GI: Reports: None : Reports: None OBGYN: Reports: None Musculoskeletal: Reports: None Hematologic: Reports: None Oncologic: Reports: Breast - Tobacco Use Tobacco Use Status *Q: Current Every Day Tobacco User Years of Tobacco use: 15 Packs/Tins Daily: 0.5 - Caffeine Use Caffeine Use: Reports: Coffee - Recreational Drug Use Recreational Drug Use: Yes Drug Use in Last 12 Months: Yes Recreational Drug Type: Reports: Marijuana/Hashish Recreational Drug Use Frequency: Daily ED ROS GENERAL - Review of Systems Review Of Systems: See Below Constitutional: Reports: Chills, Diaphoresis, Decreased Appetite. Denies: Fever HEENT: Reports: No Symptoms Respiratory: Reports: No Symptoms Cardiovascular: Reports: No Symptoms Endocrine: Reports: No Symptoms GI/Abdominal: Reports: Abdominal Pain (Left lower quadrant, right and left upper quadrant), Bloody Stool (X1 yesterday), Diarrhea (Had 2 diarrhea stools over the past 2 days), Decreased Appetite, Hematochezia, Nausea. Denies: Vomiting : Reports: Urinary Retention Musculoskeletal: Reports: No Symptoms Skin: Reports: Diaphoresis Neurological: Reports: No Symptoms Psychiatric: Reports: No Symptoms Hematologic/Lymphatic: Reports: No Symptoms Immunologic: Reports: No Symptoms ED EXAM, GI/ABD - Physical Exam Exam: See Below Exam Limited By: No Limitations General Appearance: Alert, WD/WN, Moderate Distress Ears: Normal External Exam, Hearing Grossly Normal Nose: Normal Inspection Throat/Mouth: Normal Inspection, Normal Lips, Normal Voice, No Airway Compromise Head: Atraumatic, Normocephalic Neck: Normal Inspection, Supple Respiratory/Chest: No Respiratory Distress, Lungs Clear, Normal Breath Sounds, No Accessory Muscle Use, Chest Non-Tender Cardiovascular: Normal Peripheral Pulses, Regular Rate, Rhythm, No Edema, No Murmur GI/Abdominal Exam: Normal Bowel Sounds, Distended, Tender (right and left upper quadrants, left lower quadrant). No: Soft (semi firm) (Male) Exam: Deferred Rectal (Males) Exam: Deferred Back Exam: Normal Inspection, Full Range of Motion Extremities: Normal Inspection, Normal Range of Motion, Non-Tender, No Pedal Edema, Normal Capillary Refill Neurological: Alert, Oriented, Normal Cognition Psychiatric: Normal Affect, Normal Mood Skin Exam: Warm, Dry, Intact, Normal Color, No Rash Lymphatic: No Adenopathy Course - Vital Signs Text/Narrative:: 30-year-old male recently diagnosed with diverticulitis in the emergency department on 12/21/2020. Has been taking his oral antibiotics as prescribed and felt as though he was getting better however yesterday developed left lower abdominal pain, nausea, chills, and diarrhea stools x2. States that the pain is left lower quadrant and radiates up to the left upper and right upper quadrant. He has significant tenderness noted to right and left upper quadrants and exquisite tenderness noted to left lower quadrant. States the pain radiates to his lower back. He states that he feels like someone is taking a hot pick and jabbing it through the spine. I have ordered labs on this patient, IV fluids as he is likely dehydrated and has not been eating or drinking much, Zofran and Dilaudid. Will likely order a CT scan to rule out any sort of abscess or worsening diverticulitis once I have lab results back on this patient. Last Recorded V/S: Last Vital Signs Temp 97.0 F 12/27/20 10:51 Pulse 74 12/27/20 10:51 Resp 20 12/27/20 10:51 BP 130/84 12/27/20 10:51 Pulse Ox 99 12/27/20 10:51 - Orders/Labs/Meds Orders: Active Orders 24 hr Category Date Time Status Abdomen Pelvis w Cont [CT] Stat Exams 12/27/20 11:50 Taken Sodium Chloride 0.9% [Saline Flush] Med 12/27/20 13:45 Active 10 ml FLUSH ONETIME PRN Medication Orders Sodium Chloride (Sodium Chloride 0.9% 10 Ml Syringe) 10 ml FLUSH ONETIME PRN PRN Reason: Keep Vein Open Last Admin: 12/27/20 13:59 Dose: 10 ml Documented by: [id number] Labs: Laboratory Tests 12/27/20 12/27/20 12/27/20 Range/Units 10:50 10:50 11:45 WBC 7.71 (4.23-9.07) K/mm3 RBC 4.93 (4.63-6.08) M/mm3 Hgb 14.6 (13.7-17.5) gm/dl Hct 43.9 (40.1-51.0) % MCV 89.0 (79.0-92.2) fl MCH 29.6 (25.7-32.2) pg MCHC 33.3 (32.2-35.5) g/dl RDW Std Deviation 46.7 H (35.1-43.9) fL Plt Count 370 H (163-337) K/mm3 MPV 9.7 (9.4-12.3) fl Neut % (Auto) 71.1 H (34.0-67.9) % Lymph % (Auto) 14.1 L (21.8-53.1) % [place] % (Auto) 10.8 (5.3-12.2) % Eos % (Auto) 3.4 (0.8-7.0) Baso % (Auto) 0.1 (0.1-1.2) % Neut # (Auto) 5.48 H (1.78-5.38) K/mm3 Lymph # (Auto) 1.09 L (1.32-3.57) K/mm3 [place] # (Auto) 0.83 H (0.30-0.82) K/mm3 Eos # (Auto) 0.26 (0.04-0.54) K/mm3 Baso # (Auto) 0.01 (0.01-0.08) K/mm3 Sodium 136 (136-145) mEq/L Potassium 4.3 (3.5-5.1) mEq/L Chloride 103 (98-107) mEq/L Carbon Dioxide 20 L (21-32) mEq/L Anion Gap 17.3 H (5-15) BUN 20 H (7-18) mg/dL Creatinine 1.3 (0.7-1.3) mg/dL Est Cr Clr Drug Dosing 89.54 mL/min Estimated GFR (MDRD) > 60 (>60) mL/min BUN/Creatinine Ratio 15.4 (14-18) Glucose 97 (74-106) mg/dL Calcium 9.3 (8.5-10.1) mg/dL Magnesium 1.8 (1.8-2.4) mg/dl Total Bilirubin 0.3 (0.2-1.0) mg/dL AST 59 H (15-37) U/L ALT 62 (16-63) U/L Alkaline Phosphatase 77 (46-116) U/L C-Reactive Protein 2.5 H* (<1.0) mg/dL Total Protein 7.6 (6.4-8.2) g/dl Albumin 3.7 (3.4-5.0) g/dl Globulin 3.9 gm/dL Albumin/Globulin Ratio 1.0 (1-2) Urine Color Yellow (Yellow) Urine Appearance Clear (Clear) Urine pH 8.5 H (5.0-8.0) Ur Specific [place] 1.020 (1.005-1.030) Urine Protein 2+ H (Negative) Urine Glucose (UA) Negative (Negative) Urine Ketones Trace H (Negative) Urine Occult Blood Negative (Negative) Urine Nitrite Negative (Negative) Urine Bilirubin Negative (Negative) Urine Urobilinogen 0.2 (0.2-1.0) Ur Leukocyte Esterase Negative (Negative) Urine RBC 0-5 (0-5) /hpf Urine WBC 0-5 (0-5) /hpf Ur Squamous Epith Cells 0-5 (0-5) /hpf Amorphous Sediment Few H (NOT SEEN) /hpf Urine Bacteria Few (FEW) /hpf Urine Mucus Few (FEW) /hpf Meds: Medications Generic Name Dose Route Start Last Admin Trade Name Freq PRN Reason Stop Dose Admin Sodium Chloride 10 ml 12/27/20 13:45 12/27/20 13:59 Sodium Chloride 0.9% 10 Ml Syringe FLUSH 10 ml ONETIME PRN Administration Keep Vein Open Discontinued Medications Generic Name Dose Route Start Last Admin Trade Name Freq PRN Reason Stop Dose Admin Diatrizoate Meglum/Diatrizoate Sod 90 ml 12/27/20 13:45 12/27/20 13:59 Diatrizoate Meglumine/Diatrizoate Sodium 37% 120 Ml Bottle PO 12/27/20 13:46 90 ml ONETIME ONE Administration Hydromorphone HCl 0.5 mg 12/27/20 11:14 12/27/20 11:47 Hydromorphone 0.5 Mg/0.5 Ml Syringe IVPUSH 12/27/20 11:15 0.5 mg ONETIME ONE Administration Sodium Chloride 1,000 mls @ 999 mls/hr 12/27/20 11:14 12/27/20 11:49 Normal Saline IV 12/27/20 12:14 999 mls/hr ONETIME ONE Administration Iopamidol 100 ml 12/27/20 13:44 12/27/20 13:58 Iopamidol 612 Mg/Ml 100 Ml Bottle IVPUSH 12/27/20 13:45 100 ml ONETIME ONE Administration Iopamidol 25 ml 12/27/20 13:59 12/27/20 14:00 Iopamidol 612 Mg/Ml 100 Ml Bottle IVPUSH 12/27/20 14:00 25 ml ONETIME ONE Administration Ketorolac Tromethamine 30 mg 12/27/20 12:32 12/27/20 12:36 Ketorolac 30 Mg/Ml Sdv IVPUSH 12/27/20 12:33 30 mg ONETIME ONE Administration Ondansetron HCl 4 mg 12/27/20 11:14 12/27/20 11:45 Ondansetron 4 Mg/2 Ml Sdv IVPUSH 12/27/20 11:15 4 mg ONETIME ONE Administration - Re-Assessments/Exams Free Text/Narrative Re-Assessment/Exam: 12/27/20 12:32 Hematology reveals a WBC of 7.71, hemoglobin 14.6, hematocrit 43.9, platelet count 370, chemistry reveals a sodium of 136, potassium of 4.3, chloride 103, carbon dioxide 20, anion gap 17.3, BUN 20, creatinine 1.3, glucose 97, magnesium 1.8, AST 59, ALT 62, alk phos 77, C-reactive protein 2.5 Urinalysis reveals 2+ protein, trace of ketones, nitrite negative, leuk esterase negative Patient white count is normal however C-reactive protein is just slightly elevated however it was negative on his visit on 12/21/2020. I discussed the lab work with the patient and I have ordered a CT scan due to the increased severity of his pain and radiation in the upper quadrants which is new. 12/27/20 14:48 CT scan of the abdomen and pelvis V rad impression: No acute findings. Stomach and bowel: Unremarkable. No obstruction. No mucosal thickening. Pt will be discharged to home with recommendations that he follow a clear liquid diet for the next 24 hours and then advance as tolerated. 12/27/20 14:59 Patient states he does feel much better after receiving IV fluids. Departure - Departure Time of Disposition: 15:00 Disposition: Home, Self-Care 01 Condition: Good Clinical Impression: Abdominal pain Qualifiers: Abdominal location: left lower quadrant Qualified Code(s): R10.32 - Left lower quadrant pain - Discharge Information Prescriptions: Ondansetron [Zofran ODT] 4 mg PO Q6H PRN #12 tab.dis PRN Reason: Nausea/Vomiting Instructions: Abdominal Pain, Adult, [id number], Nausea and Vomiting, Adult, [id number] Referrals: Suzanne Martinez PA-C [Primary Care Provider] - Forms: ED Department Discharge Additional Instructions: You were seen in the emergency department today with complaints of abdominal pain after recently being diagnosed with diverticulitis. Labs and a CT scan were completed the emergency department. Your labs all look much improved and did not show any signs of infection. However, you did look very dehydrated she received a liter of IV fluids and nausea medication. CT scan was unremarkable. Recommend that you go home and only consume clear liquids for the next 24 hours. You may advance to a bland diet as tolerated such as toast, oatmeal, applesauce, rice etc. Continue taking your antibiotics as prescribed until they are gone. Drink plenty of fluids to stay hydrated. If you are not feeling better by Tuesday, recommend that you follow-up with your primary care provider. Should your condition worsen or change, do not hesitate returning to the emergency department. Sent a prescription for Zofran, nausea medication, to your pharmacy. You may take this medication every 6 hours as needed for nausea or vomiting. Please wait at least 30 minutes after taking the medication to attempting to eat or drink anything. Sepsis Event Note (ED) - Evaluation Sepsis Screening Result: No Definite Risk - Focused Exam Vital Signs: Vital Signs Temp Pulse Resp BP Pulse Ox 04/24/21 10:51 97.0 F 74 20 130/84 99 - My Orders Last 24 Hours: My Active Orders 12/27/20 11:50 Abdomen Pelvis w Cont [CT] Stat 12/27/20 13:45 Sodium Chloride 0.9% [Saline Flush] 10 ml FLUSH ONETIME PRN - Assessment/Plan Last 24 Hours: My Active Orders 12/27/20 11:50 Abdomen Pelvis w Cont [CT] Stat 12/27/20 13:45 Sodium Chloride 0.9% [Saline Flush] 10 ml FLUSH ONETIME PRN
[2020-12-27] MEDS ORDERED: Ketorolac 30 MG/ML SDV IVPUSH ONE (12:32)
[2020-12-27] MEDS ORDERED: Iopamidol 612 MG/ML 100 ML Bottle IVPUSH ONE ×2 (13:44→13:59)
[2020-12-27] MEDS ORDERED: Iopamidol 612 MG/ML 50 ML SDV IVPUSH ONE (13:45)
[2020-12-27] MEDS ORDERED: Sodium Chloride 0.9% 10 ML Syringe FLUSH PRN (13:45)
[2020-12-27] MEDS ORDERED: Diatrizoate Meglumine/Diatrizoate Sodium 37% 120 ML Bottle PO ONE (13:45)
[2020-12-27 16:44] VITALS: BP 118/90; PULSE 86
--- NOTE | 2020-12-28 07:36 | CT ---
CT abdomen and pelvis Technique: Multiple axial sections were obtained from above the dome of the diaphragm inferiorly through the pubic symphysis. Intravenous and oral contrast was utilized. Delayed images were also obtained through the bladder. Reconstructed coronal and sagittal images were obtained. Comparison: Prior CT abdomen and pelvis exam of 12/22/11. Findings: Visualized lung bases show nothing acute. Liver shows no focal parenchymal abnormality. Minimal fat is seen next to the ligamentum teres fissure. Spleen is normal. Adrenal glands show no nodule. Kidneys show symmetric contrast enhancement without hydronephrosis or mass. No abnormality is appreciated within the pancreas. Gallbladder contains no calcified gallstones. Abdominal aorta shows no aneurysm. No retroperitoneal adenopathy or mesenteric abnormalities are seen. Appendix is seen which is normal. No pelvic mass or adenopathy is seen. No free fluid or inflammatory change is appreciated. Delayed images show contrast within the distal ureters and within the bladder. Bone window settings were reviewed which show no acute osseous finding. Impression: 1. Nothing acute is appreciated on CT study of the abdomen and pelvis. 2. Previous finding within the left colon on prior study has resolved in the interim from previous exam. Diagnostic code #1 I agree with preliminary report from [facility], finalized on 12/27/20, 3:28 PM CDT, code 1
== END 2020-12-27 15:35 | disposition home or self-care (01) ==
LOC: JD.ED 10:39
DX: R10.32 Left lower quadrant pain (principal); Z72.0 Tobacco use
CPT/HCPCS: 36415; 74177; 80053; 81001; 83735; 85025; 86140; 96374; 96375; 99284; J1170; J1885; J2405; J7030; Q9963; Q9967

== ENCOUNTER 2021-03-14 11:35 | Emergency (ER) | payer MEDICAID ==
[2021-03-14 11:56] VITALS: BP 124/82; PULSE 68
[2021-03-14] MEDS ORDERED: Sodium Chloride 0.9% 10 ML Syringe FLUSH PRN (12:06)
[2021-03-14] MEDS ORDERED: Sodium Chloride 0.9% 1,000 ML IV ONE (12:11)
[2021-03-14] MEDS ORDERED: LORazepam 2 MG/ML SDV IVPUSH ONE (12:11)
--- NOTE | 2021-03-14 12:17 | EDM.PDOC ---
ED HPI GENERAL MEDICAL PROBLEM - General Chief Complaint: Syncope Stated Complaint: SYNCOPE NOW ARMS AND HANDS TINGLING Time Seen by Provider: 03/14/21 12:04 Source of Information: Reports: Patient, Family (significant other), RN Notes Reviewed History Limitations: Reports: No Limitations - History of Present Illness INITIAL COMMENTS - FREE TEXT/NARRATIVE: Patient is a 30-year-old male who presents to the ER with his significant other for the evaluation of a syncopal episode at work. 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 They told him to go home and keep hydrated, and he should feel a bit better. He went to work again this morning, and feels like he out did himself, when he went out to have a cigarette, and had a syncopal episode outside. This was pretty much unwitnessed, but they did find him on the ground. He now is having some left-sided shoulder, and arm numbness and tingling. Patient has not had a syncopal episode before. He is having some chest discomfort and also some shortness of breath. He did drink water and Gatorade last night per direction of the provider at the walk-in clinic. He has had no discernible fever or chills, nausea/vomiting/diarrhea. Chest Pain Score (Numeric/FACES): 7 - Related Data Allergies Allergy/AdvReac Type Severity Reaction Status Date / Time No Known Allergies Allergy Verified 03/14/21 11:55 Home Meds: Home Meds Acetaminophen/HYDROcodone [[place] 325-5 MG] 1 tab PO Q4H PRN #10 tablet 12/21/20 [Rx] Past Medical History - Past Health History Medical/Surgical History: Denies Medical/Surgical History Gastrointestinal History: Reports: Diverticulosis Psychiatric History: Reports: Anxiety - Past Surgical History HEENT Surgical History: Reports: Oral Surgery Social & Family History - Family History Family Medical History: No Pertinent Family History HEENT: Reports: None GI: Reports: None : Reports: None OBGYN: Reports: None Musculoskeletal: Reports: None Hematologic: Reports: None Oncologic: Reports: Breast - Tobacco Use Tobacco Use Status *Q: Current Every Day Tobacco User Years of Tobacco use: 12 Packs/Tins Daily: 0.5 - Caffeine Use Caffeine Use: Reports: Coffee - Recreational Drug Use Recreational Drug Use: Yes Drug Use in Last 12 Months: Yes Recreational Drug Type: Reports: Marijuana/Hashish ED ROS GENERAL - Review of Systems Review Of Systems: Comprehensive ROS is negative, except as noted in HPI. - Physical Exam Exam: See Below Exam Limited By: No Limitations General Appearance: Alert, WD/WN, No Apparent Distress, Anxious (generalized anxiousness noted on exam) Respiratory/Chest: No Respiratory Distress, Lungs Clear, Normal Breath Sounds, No Accessory Muscle Use, Chest Non-Tender Cardiovascular: Normal Peripheral Pulses, Regular Rate, Rhythm, No Edema GI/Abdominal: Normal Bowel Sounds, Soft, Non-Tender, No Distention, No Mass Neuro Exam (Abbreviated): Alert, Oriented, Normal Cognition, No Motor/Sensory Deficits Extremities: Normal Inspection, Normal Capillary Refill Psychiatric: Anxious (generalized), Tearful Skin Exam: Warm, Intact, Normal Color, No Rash, Other (generalized clamminess to skin) #1 Interpretation EKG Date: 03/14/21 Time: 12:19 Rhythm: NSR Rate (Beats/Min): 59 Hardy: Normal P-Wave: Present QRS: Normal ST-T: Normal QT: Normal Comparison: NA - No Prior EKG EKG Interpretation Comments: No obvious ischemia or acute ST changes noted, reviewed by myself and Dr. Sebas witt. Course - Vital Signs Last Recorded V/S: Last Vital Signs Temp 95.7 F L 03/14/21 11:53 Pulse 68 03/14/21 11:53 Resp 20 03/14/21 11:53 BP 124/82 03/14/21 11:53 Pulse Ox 98 03/14/21 11:53 - Orders/Labs/Meds Orders: Active Orders 24 hr Category Date Time Status EKG Documentation Completion [RC] STAT Care 03/14/21 12:06 Ordered Peripheral IV Care [RC] . DIRECTED Care 03/14/21 12:06 Ordered Sodium Chloride 0.9% [Saline Flush] Med 03/14/21 12:06 Ordered 10 ml FLUSH ASDIRECTED PRN Peripheral IV Insertion Adult [OM.PC] Stat Oth 03/14/21 12:06 Ordered Medication Orders Sodium Chloride (Sodium Chloride 0.9% 10 Ml Syringe) 10 ml FLUSH ASDIRECTED PRN PRN Reason: Keep Vein Open Last Admin: 03/14/21 12:25 Dose: 10 ml Documented by: EBERELI Labs: Laboratory Tests 03/14/21 03/14/21 03/14/21 Range/Units 12:15 12:15 12:15 WBC 8.98 (4.23-9.07) K/mm3 RBC 4.35 L (4.63-6.08) M/mm3 Hgb 13.1 L D (13.7-17.5) gm/dl Hct 40.6 (40.1-51.0) % MCV 93.3 H D (79.0-92.2) fl MCH 30.1 (25.7-32.2) pg MCHC 32.3 (32.2-35.5) g/dl RDW Std Deviation 46.2 H (35.1-43.9) fL Plt Count 341 H (163-337) K/mm3 MPV 9.5 (9.4-12.3) fl Neut % (Auto) 46.8 (34.0-67.9) % Lymph % (Auto) 40.2 (21.8-53.1) % [place] % (Auto) 7.3 (5.3-12.2) % Eos % (Auto) 5.2 (0.8-7.0) Baso % (Auto) 0.3 (0.1-1.2) % Neut # (Auto) 4.19 (1.78-5.38) K/mm3 Lymph # (Auto) 3.61 H (1.32-3.57) K/mm3 [place] # (Auto) 0.66 (0.30-0.82) K/mm3 Eos # (Auto) 0.47 (0.04-0.54) K/mm3 Baso # (Auto) 0.03 (0.01-0.08) K/mm3 PT 10.0 (9.7-12.0) SECONDS INR 0.93 APTT 25.9 (21.7-31.4) SECONDS Sodium 141 (136-145) mEq/L Potassium 4.5 (3.5-5.1) mEq/L Chloride 107 (98-107) mEq/L Carbon Dioxide 25 (21-32) mEq/L Anion Gap 13.5 (5-15) BUN 22 H (7-18) mg/dL Creatinine 1.4 H (0.7-1.3) mg/dL Est Cr Clr Drug Dosing 83.14 mL/min Estimated GFR (MDRD) 59 (>60) mL/min BUN/Creatinine Ratio 15.7 (14-18) Glucose 99 (70-99) mg/dL Calcium 8.8 (8.5-10.1) mg/dL Magnesium 1.7 L (1.8-2.4) mg/dL Total Bilirubin 0.2 (0.2-1.0) mg/dL AST 12 L (15-37) U/L ALT 27 (16-63) U/L Alkaline Phosphatase 67 (46-116) U/L Troponin I < 0.017 (0.00-0.056) ng/mL NT-Pro-B Natriuret Pep (0-125) pg/mL Total Protein 6.6 (6.4-8.2) g/dl Albumin 3.5 (3.4-5.0) g/dl Globulin 3.1 gm/dL Albumin/Globulin Ratio 1.1 (1-2) 03/14/21 Range/Units 12:15 WBC (4.23-9.07) K/mm3 RBC (4.63-6.08) M/mm3 Hgb (13.7-17.5) gm/dl Hct (40.1-51.0) % MCV (79.0-92.2) fl MCH (25.7-32.2) pg MCHC (32.2-35.5) g/dl RDW Std Deviation (35.1-43.9) fL Plt Count (163-337) K/mm3 MPV (9.4-12.3) fl Neut % (Auto) (34.0-67.9) % Lymph % (Auto) (21.8-53.1) % [place] % (Auto) (5.3-12.2) % Eos % (Auto) (0.8-7.0) Baso % (Auto) (0.1-1.2) % Neut # (Auto) (1.78-5.38) K/mm3 Lymph # (Auto) (1.32-3.57) K/mm3 [place] # (Auto) (0.30-0.82) K/mm3 Eos # (Auto) (0.04-0.54) K/mm3 Baso # (Auto) (0.01-0.08) K/mm3 PT (9.7-12.0) SECONDS INR APTT (21.7-31.4) SECONDS Sodium (136-145) mEq/L Potassium (3.5-5.1) mEq/L Chloride (98-107) mEq/L Carbon Dioxide (21-32) mEq/L Anion Gap (5-15) BUN (7-18) mg/dL Creatinine (0.7-1.3) mg/dL Est Cr Clr Drug Dosing mL/min Estimated GFR (MDRD) (>60) mL/min BUN/Creatinine Ratio (14-18) Glucose (70-99) mg/dL Calcium (8.5-10.1) mg/dL Magnesium (1.8-2.4) mg/dL Total Bilirubin (0.2-1.0) mg/dL AST (15-37) U/L ALT (16-63) U/L Alkaline Phosphatase (46-116) U/L Troponin I (0.00-0.056) ng/mL NT-Pro-B Natriuret Pep 49 (0-125) pg/mL Total Protein (6.4-8.2) g/dl Albumin (3.4-5.0) g/dl Globulin gm/dL Albumin/Globulin Ratio (1-2) Meds: Medications Generic Name Dose Route Start Last Admin Trade Name Mackenzie PRN Reason Stop Dose Admin Sodium Chloride 10 ml 03/14/21 12:06 03/14/21 12:25 Sodium Chloride 0.9% 10 Ml Syringe FLUSH 10 ml ASDIRECTED PRN Administration Keep Vein Open Discontinued Medications Generic Name Dose Route Start Last Admin Trade Name Mackenzie PRN Reason Stop Dose Admin Sodium Chloride 1,000 mls @ 999 mls/hr 03/14/21 12:11 03/14/21 12:25 Normal Saline IV 03/14/21 13:11 999 mls/hr ONETIME ONE Administration Lorazepam 1 mg 03/14/21 12:11 03/14/21 12:25 Lorazepam 2 Mg/Ml Sdv IVPUSH 03/14/21 12:12 1 mg ONETIME ONE Administration - Re-Assessments/Exams Free Text/Narrative Re-Assessment/Exam: 03/14/21 12:16 Patient presents to the ER for evaluation of a syncopal episode, we will go ahead get laboratory evaluation, EKG for further management, will order some IV fluids, and IV Ativan for perceived anxiety. 03/14/21 13:28 Labs are all unremarkable for the most part he is slightly dehydrated as evidenced by slight elevation in the creatinine at 1.4, GFR is 59. The IV fluid should help quite a bit, I will cautioned the gentleman to go home, rest for the next few days given the few days off of work and have him eat a few good meals to see if this helps relieve some of his symptoms. Departure - Departure Time of Disposition: 13:29 Disposition: Home, Self-Care 01 Condition: Good Clinical Impression: Episode of syncope Qualifiers: Syncope type: unspecified Qualified Code(s): R55 - Syncope and collapse - Discharge Information *PRESCRIPTION DRUG MONITORING PROGRAM REVIEWED*: No *COPY OF PRESCRIPTION DRUG MONITORING REPORT IN PATIENT PEDRO: No Instructions: Syncope, [id number], Dehydration, Adult, [id number] Referrals: Suzanne Martinez PA-C [Primary Care Provider] - Forms: ED Department Discharge Additional Instructions: You were evaluated in the ER today for your syncopal episode at work. EKG, laboratory evaluation were all essentially unremarkable. You were slightly dehydrated, but he did get a liter of IV fluids in the ER, this should help relieve some of that. You did have a component of anxiety when you presented to the ER, and this seems to have gotten better with the medications that were given. Highly and strongly recommend you go home, rest and relax over the next day or 2, eat a few good meals, and keep yourself hydrated to see if this helps relieve most of the symptoms that you are experiencing. I would recommend that in the morning, you eat a pretty hearty breakfast, and drink at least 8 ounce glass of water before going to work, to make sure that it was not a low blood sugar issue that could have caused some of these issues. Do not hesitate to return to the ER at any time if symptoms change or worsen. Sepsis Event Note (ED) - Evaluation Sepsis Screening Result: No Definite Risk - Focused Exam Vital Signs: Vital Signs Temp Pulse Resp BP Pulse Ox 03/14/21 11:53 95.7 F L 68 20 124/82 98 - My Orders Last 24 Hours: My Active Orders 03/14/21 12:06 EKG Documentation Completion [RC] STAT Peripheral IV Care [RC] . DIRECTED Sodium Chloride 0.9% [Saline Flush] 10 ml FLUSH ASDIRECTED PRN Peripheral IV Insertion Adult [OM.PC] Stat - Assessment/Plan Last 24 Hours: My Active Orders 03/14/21 12:06 EKG Documentation Completion [RC] STAT Peripheral IV Care [RC] . DIRECTED Sodium Chloride 0.9% [Saline Flush] 10 ml FLUSH ASDIRECTED PRN Peripheral IV Insertion Adult [OM.PC] Stat
[2021-03-14] MEDS ORDERED: Ketorolac 30 MG/ML SDV IVPUSH ONE (13:35)
== END 2021-03-14 14:00 | disposition home or self-care (01) ==
LOC: JD.ED 11:35
DX: R55 Syncope and collapse (principal); Z72.0 Tobacco use
CPT/HCPCS: 36415; 80053; 83735; 83880; 84484; 85025; 85610; 85730; 93005; 96374; 96375; 99284; J1885; J2060; J7030; 93010

== ENCOUNTER 2023-06-20 21:17 | Emergency (ER) | payer MEDICAID | END 2023-06-20 21:21 | disposition left against medical advice (07) | LOC: JD.ED 21:17 | DX: Z53.21 Procedure and treatment not carried out due to patient leaving prior to being seen by health care provider (principal) ==

== ENCOUNTER 2025-03-18 13:16 | Emergency (ER) | payer SELFPAY ==
[2025-03-18 15:12] VITALS: BP 124/78; PULSE 78
== END 2025-03-18 14:14 | disposition home or self-care (01) ==
LOC: JD.ED 13:16
DX: S69.91XA Unspecified injury of right wrist, hand and finger(s), initial encounter (principal); W22.01XA Walked into wall, initial encounter
CPT/HCPCS: 73130-26-RT; 73130-RT; 99283